=== PATIENT | male | born 1970 | race Caucasian/White ===

== ENCOUNTER 2018-02-26 17:31 | Emergency (ER) | payer OTHER ==
[~2018-02-26] VITALS: Ht 190.5 cm; Wt 136.1 kg
[2018-02-26 17:45] VITALS: BP 139/83
== END 2018-02-26 20:20 | disposition home or self-care (01) ==
LOC: ER 17:31 → EDBD 17:31 → ER 20:20
DX: S80.812A Abrasion, left lower leg, initial encounter (principal); F17.210 Nicotine dependence, cigarettes, uncomplicated; I10 Essential (primary) hypertension; V43.52XA Car driver injured in collision with other type car in traffic accident, initial encounter; Y93.89 Activity, other specified; Y99.8 Other external cause status; Y92.410 Unspecified street and highway as the place of occurrence of the external cause
CPT/HCPCS: 70450; 73590